=== PATIENT | male | born 1990 | race Caucasian/White ===

== ENCOUNTER 2021-07-18 23:04 | Emergency (ER) | payer MEDICAID, OTHER ==
[~2021-07-18] VITALS: Ht 172.7 cm; Wt 80.3 kg
--- NOTE | 2021-07-18 23:13 | NUR ---
[id number] C/O OD COCAINE LACED WITH [employer] PROFESSOR TOOK NARCAN 4MG & ZOFRAN 4MG. PT AWAKE AND RESPONSIVE. TOLERATING R/A WELL WITH NO SOB. PT IN NO ACUTE DISTRESS AT THIS TIME. CONNECTED PT TO POX AND MONITOR. SAFETY MEASURES IN PLACE
[2021-07-19] MEDS ORDERED: NALO1DIS2 IM (00:55)
--- NOTE | 2021-07-19 01:19 | NUR ---
IV removed. Catheter intact and site benign. Pressure and 4x4 applied to site. No bleeding noted. PT tolerating R/A well with no SOB. Respirations even and non labored.
[2021-07-19 01:27] VITALS: BP 126/76
--- NOTE | 2021-07-19 01:27 | NUR ---
Patient discharged to home in stable condition. RX Written and verbal after care instructions given. Patient verbalizes understanding of instruction.
== END 2021-07-19 01:28 | disposition home or self-care (01) ==
LOC: ER 23:07
DX: T40.601A Poisoning by unspecified narcotics, accidental (unintentional), initial encounter (principal); F17.200 Nicotine dependence, unspecified, uncomplicated; Z79.899 Other long term (current) drug therapy; Y92.89 Other specified places as the place of occurrence of the external cause